=== PATIENT | male | born 1980 | race Caucasian/White ===

== ENCOUNTER 2017-09-03 10:48 | Emergency (ER) | payer OTHER ==
[2017-09-03 10:57] VITALS: RESP 16; TEMP 97.9
--- NOTE | 2017-09-03 12:53 | ED ---
Chest Pain HPI - General Chief Complaint: Chest Pain Stated Complaint: CHEST PAIN Time Seen by Provider: 09/03/17 12:20 Source: patient Mode of arrival: ambulatory Limitations: no limitations - History of Present Illness Initial Comments: Patient is a 37 year old male with no past medical history who presents with a CC of chest pain since Sunday. patient states the onset was when he was moving a pile of wood. he states after that he had some pain, but it became acutely worse yesterday after a forceful sneeze. he cannot identify any other inciting incidents. aggravating factors include certain movement and palpation. alleviating factors include standing up and walking around. timing is constant. no previous cardiac or pulmonary history. no family history of either. - Related Data Home Medications Medication Instructions Recorded Confirmed Magnesium(Unknown) 1 tab PO DAILY 09/03/17 09/03/17 Multivitamins, Thera [Multivitamin 1 tab PO DAILY 09/03/17 09/03/17 (formulary)] Naproxen 500 mg PO Q12HR PRN 09/03/17 09/03/17 Potassium 99 mg PO DAILY 09/03/17 09/03/17 Vitamin B Complex 1 cap PO DAILY 09/03/17 09/03/17 Previous Rx's Medication Instructions Recorded Acetaminophen [Tylenol Extra 1,000 mg PO Q8HR #30 tablet 09/03/17 Strength] Ibuprofen [Motrin] 800 mg PO Q8HR #20 tab 09/03/17 Methocarbamol [Robaxin-750] 750 mg PO TID PRN #10 tablet 09/03/17 Allergies Allergy/AdvReac Type Severity Reaction Status Date / Time morphine Allergy Rash/Hives Verified 09/03/17 12:23 Review of Systems ROS Statement: Those systems with pertinent positive or pertinent negative responses have been documented in the HPI. ROS Other: All systems not noted in ROS Statement are negative. Cardiovascular: Reports: chest pain Past Medical History Past Medical History: No Reported History History of Any Multi-Drug Resistant Organisms: None Reported Past Surgical History: Hernia Repair, Orthopedic Surgery Additional Past Surgical History / Comment(s): nasel septum ankle surg Past Psychological History: Anxiety Smoking Status: Never smoker Past Alcohol Use History: Daily, Occasional Past Drug Use History: Marijuana General Exam Limitations: no limitations General appearance: alert, in no apparent distress Head exam: Present: atraumatic, normocephalic Eye exam: Present: normal appearance ENT exam: Present: normal exam Neck exam: Present: normal inspection Respiratory exam: Present: normal lung sounds bilaterally. Absent: respiratory distress, wheezes Cardiovascular Exam: Present: regular rate, normal rhythm, other (patient has tenderness to palpation of the intercostal spaces of t3-t6 ) GI/Abdominal exam: Present: soft. Absent: distended, tenderness Rectal exam: Present: deferred Extremities exam: Present: normal inspection Back exam: Present: normal inspection, full ROM Neurological exam: Present: alert, oriented X3 Psychiatric exam: Present: normal affect, normal mood Skin exam: Present: warm, dry, intact Course Vital Signs 09/03/17 09/03/17 09/03/17 10:55 12:43 13:21 Temperature 97.9 F Pulse Rate 76 74 Pulse Rate [ 71 Hospice Clinical Manager ] Respiratory 16 16 Rate Blood Pressure 120/88 130/87 O2 Sat by Pulse 100 97 Oximetry 09/03/17 14:56 Temperature Pulse Rate 80 Pulse Rate [ Hospice Clinical Manager ] Respiratory 16 Rate Blood Pressure 133/89 O2 Sat by Pulse 97 Oximetry Chest Pain [facility] Patient presents with a chief complaint of chest pain. On initial evaluation, vitals are stable, patient is in no acute distress. EKG performed at 11:11 AM shows normal sinus rhythm with a rate of 69 bpm. EKG is otherwise unremarkable. Evaluation, history and physical examination most consistent with musculoskeletal chest pain. Patient will be evaluated with EKG, chest x- ray, and basic labs including one troponin. Patient otherwise at low risk for cardiac etiology, she is perk negative making PE very unlikely diagnosis. 3:04 PM Evaluation is unremarkable, cardiac enzymes negative, chest x-ray shows no acute process. At this time, patient is stable for discharge. It is likely musculoskeletal in nature. He was prescribed Motrin and Tylenol and instructed to alternate the 2. He was prescribed Robaxin instructed to resume this medication for nighttime if he is having trouble sleeping. Patient was instructed to follow up with primary care in 1-2 days, return to the emergency department if symptoms worsen or change. Disposition Clinical Impression: Costalchondritis, Chest wall syndrome, Chest pain Disposition: HOME SELF-CARE Condition: Good Instructions: Costochondritis (ED), Chest Pain (ED) Prescriptions: Acetaminophen [Tylenol Extra Strength] 1,000 mg PO Q8HR #30 tablet Ibuprofen [Motrin] 800 mg PO Q8HR #20 tab Methocarbamol [Robaxin-750] 750 mg PO TID PRN #10 tablet PRN Reason: Muscle Spasm Is patient prescribed a controlled substance at d/c from ED?: No Referrals: Keke Lopez DO [Primary Care Provider] - 1-2 days
[2017-09-03 12:58] LABS: Basophils % (A) 0 %; Eosinophils # (A) 0.1 k/uL (0-0.7); Eosinophils % (A) 3 %; HCT 46.6 % (39.0-53.0); HGB 16.1 gm/dL (13.0-17.5); Lymphocytes # (A) 1.3 k/uL (1.0-4.8); Lymphocytes % (A) 26 %; MCH 31.4 pg (25.0-35.0); MCHC 34.5 g/dL (31.0-37.0); MCV 91.1 fL (80.0-100.0); Monocytes # (A) 0.4 k/uL (0-1.0); Monocytes % (A) 7 %; Neutrophils # (A) 3.1 k/uL (1.3-7.7); Neutrophils % (A) 62 %; Platelet Count 243 k/uL (150-450); RBC 5.11 m/uL (4.30-5.90); RDW 12.7 % (11.5-15.5)
[2017-09-03 13:08] LABS: ALT 33 U/L (21-72); AST 30 U/L (17-59); Albumin 4.5 g/dL (3.5-5.0); Alkaline Phosphatase 89 U/L (38-126); Anion Gap 7 mmol/L; Blood Urea Nitrogen 13 mg/dL (9-20); Calcium 9.7 mg/dL (8.4-10.2); Carbon Dioxide 27 mmol/L (22-30); Chloride 104 mmol/L (98-107); Glucose 81 mg/dL (74-99); Magnesium 2.3 mg/dL (1.6-2.3); Potassium 4.8 mmol/L (3.5-5.1); Sodium 138 mmol/L (137-145); Total Bilirubin 0.3 mg/dL (0.2-1.3); Total Protein 7.5 g/dL (6.3-8.2)
[2017-09-03] MEDS ORDERED: KETOROLAC 30 MG/ML 1 ML VIAL IVP STA (14:14)
--- NOTE | 2017-09-03 14:50 | XR ---
EXAMINATION TYPE: XR chest 2V DATE OF EXAM: 09/03/2017 COMPARISON: NONE INDICATION: Anterior chest pain TECHNIQUE: Frontal and lateral views of the chest are obtained. FINDINGS: The heart size is normal. The pulmonary vasculature is normal. The lungs are clear. IMPRESSION: 1. No acute pulmonary process.
[2017-09-03 14:57] VITALS: BP 133/89; PULSE 80
== END 2017-09-03 15:25 | disposition home or self-care (01) ==
LOC: EC 10:48
DX: M94.0 Chondrocostal junction syndrome [Tietze] (principal); Z79.899 Other long term (current) drug therapy; Z88.5 Allergy status to narcotic agent
CPT/HCPCS: 36415; 93005; 80053; 83735; 84484; 85025; 71046; 99285; 96374; J1885

== ENCOUNTER 2019-09-16 19:25 | Emergency (ER) | payer OTHER ==
[2019-09-16 19:31] VITALS: TEMP 98.7
[2019-09-16] MEDS ORDERED: methylPREDNISolone SOD SUCCI 125 MG/2 ML VIAL IV STA (19:36)
[2019-09-16] MEDS ORDERED: SODIUM CHLORIDE 0.9% 1,000 ML IV STA (19:36)
[2019-09-16] MEDS ORDERED: FAMOTIDINE 20 MG/2 ML VIAL IV STA (19:36)
[2019-09-16] MEDS ORDERED: diphenhydrAMINE 50 MG/ML 1 ML VIAL IVP STA (19:36)
--- NOTE | 2019-09-16 19:40 | ED ---
Allergic Reaction HPI - General Chief complaint: Allergic Reaction Stated complaint: Allergic Reaction to Bee Stings Time Seen by Provider: 09/16/19 19:32 Source: patient, RN notes reviewed Mode of arrival: ambulatory Limitations: no limitations - History of Present Illness Initial Comments: This is a 39-year-old male with a history of bee sting ALLERGIES who was stung 3 times he states twice in the right upper arm and once in the left index finger. He states he started developing a reaction to it he started to develop a rash over his chest neck he has no trouble swallowing he does have a little bit chest tightness due to this. No overt pain no cough he states he does have a runny nose from it. No other modifying factors at this time. MD Complaint: allergic reaction - Related Data Home Medications Medication Instructions Recorded Confirmed Multivitamins, Thera [Multivitamin 1 tab PO DAILY 09/03/17 09/16/19 (formulary)] Vitamin B Complex 1 cap PO DAILY 09/03/17 09/16/19 ALPRAZolam [Xanax] 0.5 mg PO HS PRN 09/16/19 09/16/19 Fish Oil/Dha/Epa [Fish Oil 1,200 1 cap PO DAILY 09/16/19 09/16/19 mg Fish Oil] Zinc 50 mg PO DAILY 09/16/19 09/16/19 Previous Rx's Medication Instructions Recorded Acetaminophen [Tylenol Extra 1,000 mg PO Q8HR #30 tablet 09/03/17 Strength] EPINEPHrine (Auto Inject) [Epipen] 0.3 mg IM ONCE PRN #2 pen 09/16/19 predniSONE [Deltasone] 20 mg PO BID #10 tab 09/16/19 Allergies Allergy/AdvReac Type Severity Reaction Status Date / Time morphine Allergy Rash/Hives Verified 09/16/19 20:36 Review of Systems ROS Statement: Those systems with pertinent positive or pertinent negative responses have been documented in the HPI. ROS Other: All systems not noted in ROS Statement are negative. Past Medical History Past Medical History: No Reported History History of Any Multi-Drug Resistant Organisms: None Reported Past Surgical History: Hernia Repair, Orthopedic Surgery Additional Past Surgical History / Comment(s): nasel septum ankle surg Past Psychological History: Anxiety Smoking Status: Never smoker Past Alcohol Use History: Daily, Occasional Past Drug Use History: Marijuana General Exam - General Exam Comments Initial Comments: This is a well-developed well-nourished awake alert oriented times female Limitations: no limitations General appearance: alert, anxious Head exam: Present: atraumatic, normocephalic, normal inspection Eye exam: Present: PERRL, EOMI ENT exam: Present: other (Some rhinorrhea noted there is hyperemia to the posterior pharynx no overt edema seen at this time) Neck exam: Present: full ROM, other (No stridor JVD or bruits) Respiratory exam: Present: normal lung sounds bilaterally. Absent: respiratory distress, wheezes, rales, rhonchi, stridor Cardiovascular Exam: Present: normal rhythm, tachycardia, normal heart sounds. Absent: systolic murmur, diastolic murmur, rubs, gallop, clicks GI/Abdominal exam: Present: soft, normal bowel sounds. Absent: distended, tenderness, guarding, rebound, rigid Extremities exam: Present: full ROM, normal capillary refill, other (There is erythema seen over both the right upper shoulder left index finger some erythema seen over the chest wall and extremities and especially right axilla.). Absent: tenderness, pedal edema, joint swelling, calf tenderness Back exam: Present: normal inspection Neurological exam: Present: alert, oriented X3, CN II-XII intact Psychiatric exam: Present: normal affect, normal mood Skin exam: Present: warm, dry, intact, erythema (As described above). Absent: rash Course Vital Signs 09/16/19 09/16/19 19:27 20:10 Temperature 98.7 F Pulse Rate 107 H 111 H Respiratory 20 19 Rate Blood Pressure 148/99 153/93 O2 Sat by Pulse 91 L 97 Oximetry - Reevaluation(s) Reevaluation #1: 09/16/19 20:14 Reevaluation patient reveals minimal improvement thus far he will require epinephrine. Reevaluation #2: 09/16/19 20:42 Patient started to have some minimal improvement though he did have what appeared to be some slight edema beginning over the uvula and posterior pharynx with hyperemia epinephrine was given the patient started feeling improvement shortly after that. She did develop a headache shortly thereafter but now improved Medical Decision Making - Medical Decision Making The patient showing much improved at this time he has no more rash is itching has improved he is in satisfactory condition for discharge this time. He placed on a short course of prednisone he does have Benadryl at home and I will write for EpiPen for him. We did discuss school compresses as opposed to heat any itchy area. - EKG Data -: EKG Interpreted by Me EKG shows normal: sinus rhythm EKG Comments: Normal sinus rhythm at 99. Interval 150 to QRS duration 74 QT since QTC 342/438 possible left atrial enlargement no acute ST-T wave changes Disposition Clinical Impression: Allergic reaction, Allergic reaction to insect sting Disposition: HOME SELF-CARE Condition: Good Instructions (If sedation given, give patient instructions): Insect Bite or Sting (ED), Urticaria (ED), Allergies (ED) Prescriptions: predniSONE [Deltasone] 20 mg PO BID #10 tab EPINEPHrine (Auto Inject) [Epipen] 0.3 mg IM ONCE PRN #2 pen PRN Reason: Anaphylaxis Is patient prescribed a controlled substance at d/c from ED?: No Referrals: None,Stated [Primary Care Provider] - 1-2 days
[2019-09-16] MEDS ORDERED: EPINEPHrine 1 MG/ML 1 ML AMP IV STA (19:58)
[2019-09-16 20:11] VITALS: BP 153/93; PULSE 111; RESP 19
[2019-09-16] MEDS ORDERED: ONDANSETRON 4 MG/2 ML VIAL IVP STA (20:13)
[2019-09-16] MEDS ORDERED: KETOROLAC 30 MG/ML 1 ML VIAL IVP STA (20:13)
[2019-09-16] MEDS ORDERED: SODIUM CHLORIDE 0.9% 500 ML 500 ML IV STA (20:14)
== END 2019-09-16 21:15 | disposition home or self-care (01) ==
LOC: EC 19:25
DX: T63.441A Toxic effect of venom of bees, accidental (unintentional), initial encounter (principal); F41.9 Anxiety disorder, unspecified; Z79.899 Other long term (current) drug therapy; Z88.5 Allergy status to narcotic agent
CPT/HCPCS: 99283; 96374; 96375 ×5; 96361 ×2; 93005; J0171; J1200; J2930; J2405; J1885

== ENCOUNTER 2021-09-02 17:30 | Emergency (ER) | payer OTHER ==
[2021-09-02 19:17] VITALS: RESP 18
--- NOTE | 2021-09-02 19:54 | XR ---
EXAMINATION TYPE: XR hand complete RT DATE OF EXAM: 09/02/2021 COMPARISON: NONE HISTORY: Laceration. TECHNIQUE: 3 views FINDINGS: Metacarpals are intact. I see no fracture nor dislocation. Fingers are intact. Carpal bones are intact. No evidence of a foreign body. IMPRESSION: Negative exam. No foreign body seen.
--- NOTE | 2021-09-02 19:56 | XR ---
EXAMINATION TYPE: XR wrist complete RT DATE OF EXAM: 09/02/2021 COMPARISON: NONE HISTORY: Laceration. Pain TECHNIQUE: 4 views FINDINGS: Carpal bones are intact. I see no fracture nor dislocation. Joint spaces are normal. The th umb appears intact. IMPRESSION: Negative right wrist exam.
[2021-09-02] MEDS ORDERED: TOPICAL SKIN ADHESIVE 1 EACH AMP TOPICAL ONE (20:05)
[2021-09-02] MEDS ORDERED: ONDANSETRON ODT 4 MG TAB PO STA (20:06)
[2021-09-02] MEDS ORDERED: Acetaminophen-Codeine 300-30mg TAB PO STA (20:07)
[2021-09-02] MEDS ORDERED: IBUPROFEN 800 MG TAB PO STA (20:07)
--- NOTE | 2021-09-02 20:19 | ED ---
Wound/Laceration HPI - General Chief Complaint: Skin/Abscess/Foreign Body Stated Complaint: R hand laceration/possible broken thumb Time Seen by Provider: 09/02/21 19:55 Source: patient, RN notes reviewed Mode of arrival: ambulatory Limitations: no limitations - History of Present Illness Initial Comments: This is a 41-year-old male who presents to the emergency department with a laceration to the right thumb. 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 The employee accidentally swung the chainsaw to the side, slamming his hand against a tree with the blade hitting a portion of his thumb. Following the incident, he states that he pulled a lot of debris out of the wound. He is concerned that he broke his thumb because it is very painful and difficult to move. He is up-to-date on his tetanus vaccine. Denies any fevers, chills, sore throat, cough, dyspnea, chest pain, palpitations, abdominal pain, nausea, vomiting, diarrhea, back pain, or headaches. Extremity Location: Right: Hand Place: work Patient Tetanus UTD: Yes Context: accidental Treatments Prior to Arrival: bandage - Related Data Home Medications Medication Instructions Recorded Confirmed Multivitamins, Thera [Multivitamin 1 tab PO DAILY 09/03/17 09/16/19 (formulary)] Vitamin B Complex 1 cap PO DAILY 09/03/17 09/16/19 ALPRAZolam [Xanax] 0.5 mg PO HS PRN 09/16/19 09/16/19 Fish Oil/Dha/Epa [Fish Oil 1,200 1 cap PO DAILY 09/16/19 09/16/19 mg Fish Oil] Zinc 50 mg PO DAILY 09/16/19 09/16/19 Previous Rx's Medication Instructions Recorded Acetaminophen [Tylenol Extra 1,000 mg PO Q8HR #30 tablet 09/03/17 Strength] EPINEPHrine (Auto Inject) [Epipen] 0.3 mg IM ONCE PRN #2 pen 09/16/19 predniSONE [Deltasone] 20 mg PO BID #10 tab 09/16/19 Cephalexin [Keflex] 1,000 mg PO Q12HR 5 Days #20 cap 09/02/21 Allergies Allergy/AdvReac Type Severity Reaction Status Date / Time morphine Allergy Rash/Hives Verified 09/02/21 19:17 Review of Systems ROS Statement: Those systems with pertinent positive or pertinent negative responses have been documented in the HPI. ROS Other: All systems not noted in ROS Statement are negative. Past Medical History Past Medical History: No Reported History History of Any Multi-Drug Resistant Organisms: None Reported Past Surgical History: Hernia Repair, Orthopedic Surgery Additional Past Surgical History / Comment(s): nasel septum ankle surg Past Psychological History: Anxiety Smoking Status: Never smoker Past Alcohol Use History: Daily, Occasional Past Drug Use History: Marijuana General Exam Limitations: no limitations General appearance: alert, in distress Head exam: Present: atraumatic, normocephalic, normal inspection Respiratory exam: Present: normal lung sounds bilaterally. Absent: respiratory distress, wheezes, rales, rhonchi, stridor Cardiovascular Exam: Present: regular rate, normal rhythm, normal heart sounds. Absent: systolic murmur, diastolic murmur, rubs, gallop, clicks Extremities exam: Present: other (2cm superficial vertical laceration to the palmar aspect of the right thumb. No active bleeding. No penetration of the dermis. ) Neurological exam: Present: alert, oriented X3, CN II-XII intact Psychiatric exam: Present: normal affect, normal mood Course Vital Signs 09/02/21 09/02/21 19:15 20:45 Temperature 98 F 97.8 F Pulse Rate 82 80 Respiratory 18 18 Rate Blood Pressure 136/98 159/110 O2 Sat by Pulse 100 99 Oximetry Procedures - Laceration Laceration #1 Consent Obtained: verbal consent Indication: laceration Site: hand (right thumb) Size (cm): 2 Description: linear Depth: simple, single layer Sedation/Analgesia: none Pre-repair: wound explored Size of Sutures: other (Exofin) Medical Decision Making - Medical Decision Making This is a 41-year-old male who presents to the emergency department for a laceration to the right thumb. X-ray of the hand and wrist revealed no fractures or dislocations. The laceration was superficial and no sutures were required. Exofin was applied. 5 day course of Keflex prescribed, with the first dose administered in the emergency department, as his pharmacy was closed at the time of discharge. He requested nausea medication and was given Zofran in the w aiting room. Ibuprofen and Tylenol #3 administered for pain. Patient was up to date on his tetanus vaccine. Return precautions reviewed in depth, the patient is instructed to return to the emergency department with any new, worsening, or concerning symptoms. Patient verbalized understanding. This case was discussed in detail with the attending ED physician. Presentation, findings, and treatment plan discussed in detail as well. - Radiology Data Radiology results: report reviewed, image reviewed Disposition Clinical Impression: Laceration of thumb, right Disposition: HOME SELF-CARE Instructions (If sedation given, give patient instructions): Laceration (ED), Skin Adhesive Care (ED) Additional Instructions: Return to the emergency department with any new, worsening, or concerning symptoms. Keep the area dry, do not apply topical medications, and do not rub, scratch, or pick at the wound. The adhesive will naturally fall off within 5-10 days. Alternate with Tylenol and ibuprofen as needed for pain. Ice the injury for the first 2 days followed by heat there afterwards. Take the antibiotic as prescribed. Prescriptions: Cephalexin [Keflex] 1,000 mg PO Q12HR 5 Days #20 cap Is patient prescribed a controlled substance at d/c from ED?: No Referrals: Nonstaff,Physician [Primary Care Provider] - 1-2 days
[2021-09-02] MEDS ORDERED: CEPHALEXIN 500 MG CAP PO STA (20:24)
[2021-09-02 20:47] VITALS: BP 159/110; PULSE 80; TEMP 97.8
== END 2021-09-02 20:49 | disposition home or self-care (01) ==
LOC: EC 17:30
DX: S61.011A Laceration without foreign body of right thumb without damage to nail, initial encounter (principal); F41.9 Anxiety disorder, unspecified; F12.90 Cannabis use, unspecified, uncomplicated; Z79.899 Other long term (current) drug therapy; W29.3XXA Contact with powered garden and outdoor hand tools and machinery, initial encounter; Y99.0 Civilian activity done for income or pay
CPT/HCPCS: 12001; 99283